=== PATIENT | male | born 1960 | race Caucasian/White ===

== ENCOUNTER → 2020-06-04 13:27 | Outpatient (BNVA) | payer OTHER, SELFPAY | PROVIDERS: Family Provider Nurse Practitioner; PCP Nurse Practitioner; Visit Provider Nurse Practitioner | DX: M19.071 Primary osteoarthritis, right ankle and foot (principal); M77.31 Calcaneal spur, right foot; M79.671 Pain in right foot | CPT/HCPCS: 73630 ==

== ENCOUNTER → 2020-11-30 14:09 | Outpatient (BNVA) | payer OTHER, MEDICARE, SELFPAY | PROVIDERS: Family Provider Nurse Practitioner; PCP Nurse Practitioner; Visit Provider Nurse Practitioner Family | DX: M10.9 Gout, unspecified (principal); F41.9 Anxiety disorder, unspecified; I10 Essential (primary) hypertension; E11.65 Type 2 diabetes mellitus with hyperglycemia; M25.561 Pain in right knee | CPT/HCPCS: 73562; 80053; 80061; 83036; 84443; 84550; 85025 ==

== ENCOUNTER → 2021-01-11 14:30 | Outpatient (BNVA) | payer OTHER, SELFPAY | PROVIDERS: Absent Provider Nurse Practitioner Family; Family Provider Nurse Practitioner; PCP Nurse Practitioner; Visit Provider Nurse Practitioner Family | DX: M25.511 Pain in right shoulder (principal); M25.512 Pain in left shoulder | CPT/HCPCS: 73030 ==

== ENCOUNTER 2021-02-23 12:40 | Outpatient (CLI) | payer OTHER, SELFPAY ==
--- NOTE | 2021-02-23 13:00 | MR_ITS ---
WS: [id number] MRI LEFT SHOULDER NONCONTRAST TECHNIQUE: Sagittal T2, coronal T1, T2 and proton density imaging. Axial gradient PDE imaging. CLINICAL INFORMATION: M25.511 - Pain in right shoulder COMPARISON: None. FINDINGS: Moderate to advanced osteoarthritis AC joint with hypertrophic spurring. Moderate downsloping acromio n. Subacromial spurring. Significant narrowing of the subacromial space. Fluid in the AC joint. Small joint effusion. Small amount of subacromial/subdeltoid fluid. Chronic thinning of the distal suprasp inatus with high-grade full-thickness tear. Tendon appears retracted to the level of the glenohumeral joint. Atrophy of the supraspinatus muscle belly. Tendinopathy within the infraspinatus tendon which appears intact. Chronic thinning of the distal inf raspinatus with tiny tear at the infraspinatus insertion. Normal teres minor. High-grade complete tear of the subscapularis with retraction to the level of glenohumeral joint. Bic eps tendon is absent from the bicipital groove and not visualized presumably chronically torn. Diminu tive intracapsular biceps tendon. A few small calcified loose bodies more numerous in the subcoracoid bursa. Degenerative fraying of the glenoid labrum. Cystic degenerative change involving the humerus. MR/MR shoulder LT wo con* [id number] IMPRESSION: 1. Advanced osteoarthritis of the AC joint with narrowing of the subacromial s pace. Edema at the AC joint. 2. High-grade tear of the supraspinatus with retraction to the level of the gl enohumeral joint. Atrophy of the supraspinatus muscle belly. 3. High-grade complete tear of the subscapularis with retraction to the glenoh umeral joint. 4. Biceps tendon is absent from the bicipital groove and not visualized presum ably chronically torn. 5. Cystic degenerative change involving the greater tuberosity and humeral hea d. 6. A few intra-articular loose bodies.
--- NOTE | 2021-02-23 13:45 | MR_ITS ---
WS: [id number] MRI RIGHT SHOULDER NONCONTRAST TECHNIQUE: Sagittal T2, coronal T1, T2 and proton density imaging. Axial gradient PDE imaging. CLINICAL INFORMATION: M25.511 - Pain in right shoulder COMPARISON: None. FINDINGS: Advanced degenerative arthritis AC joint with narrowing of the subacromial space progressed compared to previous. Chronic appearing high-grade tear of the mid supraspinatus tendon deep to the acromion. Atrophy of the supraspinatus muscle belly appears progressed compared to previous. Infraspinatus appe ars intact distally with marked chronic thinning. Tendinopathy involving the infraspinatus tendon dis tally. Small joint effusion with fluid and edema involving the rotator cuff. Teres minor appears intact. Chr onic appearing partial thickness tear of the subscapularis similar in appearance to previous. Medial dislocation of the biceps tendon from the bicipital groove. Chronic appearing tear of the extracapsu lar biceps tendon was present previously. Small intra-articular biceps tendon. Degenerative fraying of the glenoid labrum. Cystic degenerative changes involving the humeral head. MR/MR shoulder RT wo con* [id number] IMPRESSION: 1. Advanced osteoarthritis at the AC joint with progressed narrowing of the ahnd bacromial space. High-grade tear involving the midportion of the supraspinatus tendon with marked narrowing of the subacromial space. This is progressed feng red to previous. 2. Chronic thinning of the infraspinatus tendon with some fibers intact distal ly. 3. Partial thickness tear involving the subscapularis tendon similar to previo us exam. 4. Biceps tendon dislocated from the bicipital groove and displaced medially. Chronic appearing tear of the extracapsular biceps tendon with small intra-sourav cular biceps tendon. 5. Advanced degenerative arthritis glenohumeral joint with hypertrophic spurri ng. 6. Small joint effusion with intra-articular loose bodies.
== END 2021-02-23 12:41 | disposition home or self-care (01) ==
LOC: RADSHAW 12:45
PROVIDERS: PCP Nurse Practitioner Family; Visit Provider Nurse Practitioner Family
DX: M19.012 Primary osteoarthritis, left shoulder (principal); M19.011 Primary osteoarthritis, right shoulder; S46.811A Strain of other muscles, fascia and tendons at shoulder and upper arm level, right arm, initial encounter; M25.411 Effusion, right shoulder; S46.812A Strain of other muscles, fascia and tendons at shoulder and upper arm level, left arm, initial encounter; X58.XXXA Exposure to other specified factors, initial encounter; M75.102 Unspecified rotator cuff tear or rupture of left shoulder, not specified as traumatic
CPT/HCPCS: 73221

== ENCOUNTER → 2023-03-07 15:00 | Outpatient (BNVA) | payer OTHER, SELFPAY | PROVIDERS: PCP Nurse Practitioner Family; Visit Provider Nurse Practitioner Family | DX: M25.511 Pain in right shoulder (principal); M54.2 Cervicalgia; E11.65 Type 2 diabetes mellitus with hyperglycemia | CPT/HCPCS: 80053; 80061; 83036; 85025 ==

== ENCOUNTER → 2023-03-09 13:34 | Outpatient (BNVA) | payer OTHER, SELFPAY | PROVIDERS: PCP Nurse Practitioner Family; Visit Provider Family Medicine | DX: M19.011 Primary osteoarthritis, right shoulder (principal); M47.892 Other spondylosis, cervical region; M25.511 Pain in right shoulder; M54.2 Cervicalgia | CPT/HCPCS: 72040; 73030 ==

== ENCOUNTER → 2024-07-15 15:10 | Outpatient (BNVA) | payer BC, SELFPAY | PROVIDERS: PCP Nurse Practitioner Family; Visit Provider Nurse Practitioner Family | DX: M17.11 Unilateral primary osteoarthritis, right knee (principal); M11.261 Other chondrocalcinosis, right knee; E11.65 Type 2 diabetes mellitus with hyperglycemia | CPT/HCPCS: 73562; 80053; 80061; 83036; 84443; 85025 ==